=== PATIENT | female | born 1990 | race Caucasian/White ===

== ENCOUNTER 2020-08-19 16:24 | Emergency (ER) | payer OTHER ==
[~2020-08-19 16:24] MED LIST: COLACE 100MG C100 MG PO
[2020-08-19] MEDS ORDERED: SILVADENE CREAM20 GM TOP (17:14)
== END 2020-08-19 17:20 | disposition home or self-care (01) ==
LOC: ER1 16:24
DX: T23.201A Burn of second degree of right hand, unspecified site, initial encounter (principal); T31.0 Burns involving less than 10% of body surface; Z79.899 Other long term (current) drug therapy; Z23 Encounter for immunization; R03.0 Elevated blood-pressure reading, without diagnosis of hypertension; X10.2XXA Contact with fats and cooking oils, initial encounter; Y92.009 Unspecified place in unspecified non-institutional (private) residence as the place of occurrence of the external cause
CPT/HCPCS: 16020; 90471; 90715; 99283